=== PATIENT | male | born 1985 | race Caucasian/White ===

== ENCOUNTER → 2019-07-11 | Outpatient (CLI) | payer OTHER ==
[~2019-07-11] MED LIST: CLINDAMYCIN150 MG PO; LORTAB 5/500 501 TAB PO; PREDNISONE 5MG5 MG
== END ==
LOC: COL.RAD 13:59
DX: M48.02 Spinal stenosis, cervical region (principal); M47.812 Spondylosis without myelopathy or radiculopathy, cervical region

== ENCOUNTER → 2019-07-12 | Outpatient (CLI) | payer OTHER | LOC: COL.RAD 07:23 | DX: J32.9 Chronic sinusitis, unspecified (principal) ==

== ENCOUNTER → 2023-07-04 | Outpatient (CLI) | payer OTHER | LOC: MHCPAIN 12:22 | DX: M47.812 Spondylosis without myelopathy or radiculopathy, cervical region (principal); M48.02 Spinal stenosis, cervical region | CPT/HCPCS: G0463 ==

== ENCOUNTER → 2023-09-07 | Outpatient (CLI) | payer OTHER ==
[~2023-09-07] MED LIST changes: +Iohexol 300 - 10 ML VIAL ONE; +Lidocaine PF 2% (20 MG/ML) 2 ML VIAL ONE
== END ==
LOC: MHCPAIN 12:59
DX: M54.12 Radiculopathy, cervical region (principal)
CPT/HCPCS: J1040; Q9967

== ENCOUNTER → 2023-10-10 | Outpatient (CLI) | payer OTHER ==
[~2023-10-10] MED LIST changes: -Iohexol 300 - 10 ML VIAL ONE; -Lidocaine PF 2% (20 MG/ML) 2 ML VIAL ONE
== END ==
LOC: MHCPAIN 08:43
DX: M47.812 Spondylosis without myelopathy or radiculopathy, cervical region (principal); M48.02 Spinal stenosis, cervical region
CPT/HCPCS: G0463